=== PATIENT | female | born 1965 | race American Indian/Alaskan Native ===

== ENCOUNTER 2018-01-06 11:20 | Inpatient (IN) | payer OTHER ==
[2018-01-06 12:07] LABS: HEMOGLOBIN 13.2 g/dL (11.0-16.0); MEAN CELL VOLUME 82.9 fL (81.0-99.0); MEAN CORPUSCULAR HEMOGLOBIN 27.7 pg (27.0-31.0); MEAN CORPUSCULAR HGB CONC 33.4 g/dL (33.0-37.0); MEAN PLATELET VOLUME 8.6 fL (7.2-11.7); RBC 4.76 Mil/uL (3.80-5.20); RED CELL DISTRIBUTION WIDTH 14.6 % (11.5-14.5)
[2018-01-06 12:18] LABS: ALB/GLOB RATIO 1.2 (1.0-2.1); ALBUMIN 4.2 g/dL (3.5-5.0); ALT/SGPT 87 U/L (9-52); AST/SGOT 65 U/L (14-36); BLOOD UREA NITROGEN 9 mg/dL (7-17); CALCIUM 9.3 mg/dl (8.6-10.4); GFR NON-AFRICAN AMERICAN > 60
[2018-01-06 12:46] LABS: SQUAMOUS EPITHIAL 5 /hpf (0-5); URINE BACTERIA MANY (<OCC); URINE BILIRUBIN NEGATIVE (NEGATIVE); URINE BLOOD 1+ (NEGATIVE); URINE CLARITY Hazy (Clear); URINE COLOR Amber (YELLOW); URINE GLUCOSE (UA) NORMAL (Normal); URINE LEUKOCYTE ESTERASE 3+ Leu/uL (Negative); URINE PROTEIN 2+ mg/dL (NEGATIVE)
[2018-01-06 13:14] LABS: LIPASE 56 U/L (23-300)
[2018-01-06] MEDS ORDERED: cefTRIAXone 1 gm 1 GM/100 ML BAG IVPB ONE (13:16)
[2018-01-06] MEDS ORDERED: Sodium Chloride 0.9% 1,000 ML IV ONE (13:24)
--- NOTE | 2018-01-06 15:16 | C.PDOC ---
History Of Present Illness 52 year old female presents to the ED for evaluation of fever, chills, cough, nausea and generalized body aches for two days. Patient denies vomiting, diarrhea, abdominal pain, recent travel or sick contacts. Time Seen by Provider: 01/06/18 11:31 Chief Complaint (Nursing): Chest Pain History Per: Patient History/Exam Limitations: no limitations Onset/Duration Of Symptoms: Days (2) Current Symptoms Are (Timing): Still Present Quality: Aching Associated Symptoms: Nausea Additional History Per: Patient Past Medical History Reviewed: Historical Data, Nursing Documentation, Vital Signs Vital Signs: Last Vital Signs Temp 99 F 01/06/18 14:27 Pulse 82 01/06/18 14:27 Resp 17 01/06/18 14:27 BP 122/73 01/06/18 14:27 Pulse Ox 97 01/06/18 14:27 - Medical History PMH: No Chronic Diseases Surgical History: No Surg Hx Family History: States: Unknown Family Hx - Social History Hx Alcohol Use: No Hx Substance Use: No Review Of Systems Constitutional: Positive for: Fever, Chills Respiratory: Positive for: Cough Gastrointestinal: Positive for: Nausea. Negative for: Vomiting, Abdominal Pain, Diarrhea Musculoskeletal: Positive for: Other (generalized body aches ) Physical Exam - Physical Exam Appears: Non-toxic, No Acute Distress Skin: Normal Color, Warm, Dry Head: Atraumatic, Normacephalic Eye(s): bilateral: Normal Inspection Oral Mucosa: Moist Neck: Supple Chest: Symmetrical, No Deformity, No Tenderness Cardiovascular: Rhythm Regular, No Murmur Respiratory: Normal Breath Sounds, No Rales, No Rhonchi, No Wheezing Gastrointestinal/Abdominal: Soft, No Tenderness, No Guarding, No Rebound Extremity: Normal ROM, Capillary Refill Neurological/Psych: Oriented x3, Normal Speech, Normal Cognition ED Course And Treatment - Laboratory Results Result Diagrams: 01/06/18 11:47 01/06/18 11:47 ECG: Interpreted By Me, Viewed By Me ECG Rhythm: Sinus Tachycardia Interpretation Of ECG: Sinus Tachycardia at rate 105bpm. LVH. Normal intervals. Normal axis. Nonspecific ST/T wave changes. Rate From EC O2 Sat by Pulse Oximetry: 97 (on RA) Pulse Ox Interpretation: Normal Medical Decision Making Medical Decision Making: Assessment: pyelonephritis Progress: Case discussed with Dr. Cordero. Will keep patient for med surg observation. Disposition Discussed With : Vasyl Cordero Doctor Will See Patient In The: Hospital Counseled Patient/Family Regarding: Studies Performed, Diagnosis - Disposition Disposition: HOSPITALIZED Disposition Time: 15:16 Condition: FAIR - Clinical Impression Clinical Impression: Pyelonephritis - Scribe Statement The provider has reviewed the documentation as recorded by the Scribe (Sandrine Mojica) Provider Attestation: All medical record entries made by the Scribe were at my direction and personal ly dictated by me. I have reviewed the chart and agree that the record accurately reflects my personal performance of the history, physical exam, medical decision making, and the department course for this patient. I have also personally directed, reviewed, and agree with the discharge instructions and disposition.
--- NOTE | 2018-01-06 16:42 | RAD ---
Date of service: 01/06/2018 HISTORY: cough COMPARISON: No prior. TECHNIQUE: Chest PA and lateral FINDINGS: LUNGS: No acute infiltrate bilaterally. Linear atelectasis or fibrosis seen lateral to the left heart border. PLEURA: No significant pleural effusion identified. No pneumothorax apparent. CARDIOVASCULAR: No aortic atherosclerotic calcification present. Cardiomegaly identified. No pulmonary vascular congestion. OSSEOUS STRUCTURES: No significant abnormalities. VISUALIZED UPPER ABDOMEN: Normal. OTHER FINDINGS: None. IMPRESSION: Cardiomegaly. No pulmonary vascular congestion or acute pulmonary infiltrate appreciable bilaterally. Linear atelectasis or fibrosis seen lateral to the left heart border
[2018-01-06] MEDS ORDERED: Potassium Chloride 20 mEq ER Tab PO ONE (19:18)
[2018-01-07 07:42] LABS: BASO # 0.1 K/uL (0.0-0.2); BASO % 0.6 % (0.0-2.0); EOS % 0.1 % (0.0-4.0); HEMOGLOBIN 12.2 g/dL (11.0-16.0); LYMPH # 0.9 K/uL (1.0-4.3); LYMPH % 7.6 % (20.0-40.0); MEAN CELL VOLUME 83.3 fL (81.0-99.0); MEAN CORPUSCULAR HEMOGLOBIN 27.7 pg (27.0-31.0); MEAN CORPUSCULAR HGB CONC 33.2 g/dL (33.0-37.0); MEAN PLATELET VOLUME 8.6 fL (7.2-11.7); MONO # 0.4 K/uL (0.0-0.8); MONO % 3.7 % (0.0-10.0); NEUT # 10.4 K/uL (1.8-7.0); PLATELET COUNT 211 K/uL (130-400); RED CELL DISTRIBUTION WIDTH 14.4 % (11.5-14.5); WHITE BLOOD COUNT 11.8 K/uL (4.8-10.8)
[2018-01-07 08:26] LABS: ALBUMIN 3.7 g/dL (3.5-5.0); ALT/SGPT 72 U/L (9-52); AST/SGOT 54 U/L (14-36); BLOOD UREA NITROGEN 13 mg/dL (7-17); GFR NON-AFRICAN AMERICAN > 60
[2018-01-07 09:19] LABS: BANDS 3 % (0-2); LYMPHOCYTE 11 % (20-40); MONOCYTE 2 % (0-10); NEUTROPHIL 84 % (50-75); PLATELET ESTIMATE NORMAL (NORMAL); TOTAL CELLS COUNTED 100
--- NOTE | 2018-01-07 09:42 | CP.PCM.PN ---
Subjective - Date & Time of Evaluation Date of Evaluation: 01/07/18 Time of Evaluation: 09:40 - Subjective Subjective: Progress note. Attending: Dr. Barrera Pt is a 52 yo female, with past medical hx of obesity, cholelithiasis, unspecified cyst on right arm, presenting to [facility] ER with chief complaint of abdominal pain and back pain. Patient states pain began on 01/05. Pt says this has never happened before. She was feeling subjective fevers at home but did not take her temp. She denies any ongoing medical problems and does not smoke. She denies any urinary complaints, vomiting, diarrhea, black or bloody stools. She denies chest pain, shortness of breath. She is also reporting a headache. Denies recent travel or sick contacts. PMH: obesity, cholelithiasis, unspecified cyst on right arm PSH: cholecystectomy; cyst removal; C section x 2 Allergies: NKDA FH: denies Home meds: multivitamin Social hx: Denies smoking, drinking, drug use hx. Born in . Lives with one daughter at home. Works as a engineering technician. Grew up in [place]. PMD: Dr. Barrera. Objective - Vital Signs/Intake and Output Vital Signs (last 24 hours): Temp Pulse Resp BP Pulse Ox 100.6 F H 102 H 20 131/83 97 01/07/18 08:03 01/07/18 08:03 01/07/18 08:03 01/07/18 08:03 01/07/18 08:20 - Medications Medications: Current Medications Acetaminophen (Tylenol 325mg Tab) 650 mg PO Q6 PRN PRN Reason: Fever >100.4 F Last Admin: 01/07/18 07:43 Dose: 650 mg Heparin Sodium (Porcine) (Heparin) 5,000 units SC Q12 TEX Ceftriaxone Sodium 1 gm/ (Sodium Chloride) 100 mls @ 100 mls/hr IVPB DAILY TEX; Protocol Ketorolac Tromethamine (Toradol) 30 mg IVP Q8 PRN PRN Reason: Pain, moderate (4-7) Last Admin: 01/07/18 07:36 Dose: 30 mg Potassium Chloride (K-Dur 20 Meq Er Tab) 20 meq PO ONCE ONE Stop: 01/07/18 10:01 - Labs Labs: 01/07/18 07:29 01/07/18 07:29 - Constitutional Appears: Non-toxic, No Acute Distress - Head Exam Head Exam: ATRAUMATIC, NORMAL INSPECTION, NORMOCEPHALIC - Eye Exam Eye Exam: EOMI - ENT Exam ENT Exam: Mucous Membranes Moist - Neck Exam Neck Exam: Full ROM, Normal Inspection - Respiratory Exam Respiratory Exam: absent: Respiratory Distress - Cardiovascular Exam Cardiovascular Exam: +S1, +S2 - GI/Abdominal Exam GI & Abdominal Exam: Soft, Normal Bowel Sounds. absent: Tenderness - Extremities Exam Extremities Exam: Full ROM, Normal Inspection - Back Exam Back Exam: CVA tenderness (R) - Neurological Exam Neurological Exam: Alert, Awake, CN II-XII Intact, Oriented x3 - Psychiatric Exam Psychiatric exam: Flat Affect - Skin Skin Exam: Dry, Intact, Normal Color, Warm Assessment and Plan - Assessment and Plan (Free Text) Assessment: This is a 52 yo female 1. Pyelonephritis -tylenol PRN -ceftriaxone 1 g daily -toradol prn -renal ultrasound is normal -flu negative -urine culture pending 2. hypokalemia -repelete as needed 3. transaminitis -hep panel -GGT 4. elevated alk phos -hep panel -GGT 5. Cardiomegaly on CXR -cardiology consult. recs appreciated. Dr. Estrada 6. IGT -lifestyle and diet changes -may be a candidate for metformin for prevention given age and BMI 7. Obesity -recommend weight loss/healthy diet 8. GI/DVT ppx -heparin 5000 q 12 hrs -no GI indicated discussed with Dr. Barrera
--- NOTE | 2018-01-07 09:59 | US ---
Date of service: 01/07/2018 PROCEDURE: Ultrasound of the Kidneys HISTORY: Pyelonephritis COMPARISON: None available. TECHNIQUE: Sonogram of the kidneys. FINDINGS: RIGHT KIDNEY: Measures: 11.2 cm. Normal in size, contour and echogenicity. No stone, solid mass lesion or hydronephrosis visualized. LEFT KIDNEY: Measures: 10.8 cm. Normal in size, contour and echogenicity. No stone, solid mass lesion or hydronephrosis visualized. OTHER FINDINGS: None. IMPRESSION: Normal examination.
[2018-01-07] MEDS ORDERED: Potassium Chloride 20 mEq ER Tab PO ONE ×2 (10:00→19:02)
[2018-01-07 11:49] LABS: HDL CHOLESTEROL 53 mg/dL (30-70)
[2018-01-07 12:02] LABS: LDL CHOLESTEROL 69 mg/dL (0-129)
[2018-01-07 17:22] LABS: HEPATITIS B SURFACE AG Negative (NEGATIVE)
[2018-01-07 17:28] LABS: HEPATITIS A IGM NEGATIVE (NEGATIVE)
[2018-01-07 17:40] LABS: HEPATITIS C ANTIBODY NEGATIVE (NEGATIVE)
[2018-01-07 18:42] LABS: HEPATITIS B CORE AB NEGATIVE (NEGATIVE)
--- NOTE | 2018-01-07 18:55 | CP.PCM.CON ---
History of Present Illness - History of Present Illness History of Present Illness: I was asked to evaluate patient by Dr Barrera. Patient was seen 01/07/18 at 1810 Patient is a 52 year old female with HTN who presents with flank pain. Patient states symptoms 3 days ago, and was noted to feel feverish. The patient was noted to have dyspnea on exertion. She was admitted for further management. Of note cardiomegaly was noted on CXR. She denies previous cardiac workup. Review of Systems - Constitutional Constitutional: Fever - EENT Eyes: absent: As Per HPI, Blind Spots, Blurred Vision, Change in Vision, Decreased Night Vision, Diplopia, Discharge, Dry Eye, Exophthalmos, Floaters, Irritation, Itchy Eyes, Loss of Peripheral Vision, Pain, Photophobia, Requires Corrective Lenses, Sees Flashes, Spots in Vision, Tunnel Vision, Other Visual Disturbances, Loss of Vision, Other Ears: absent: As Per HPI, Decreased Hearing, Ear Discharge, Ear Pain, Tinnitus, Abnormal Hearing, Disequilibrium, Dizziness, Other Nose/Mouth/Throat: absent: As Per HPI, Epistaxis, Nasal Congestion, Nasal Discharge, Nasal Obstruction, Nasal Trauma, Nose Pain, Post Nasal Drip, Sinus Pain, Sinus Pressure, Bleeding Gums, Change in Voice, Dental Pain, Dry Mouth, Dysphagia, Halitosis, Hoarsness, Lip Swelling, Mouth Lesions, Mouth Pain, Odynophagia, Sore Throat, Throat Swelling, Tongue Swelling, Facial Pain, Neck Pain, Neck Mass, Other - Breasts Breasts: absent: As Per HPI, Change in Shape, Mass, Pain, Nipple Discharge, Nipple Inversion, Skin Changes, Swelling, Other - Cardiovascular Cardiovascular: Dyspnea. absent: As Per HPI, Acrocyanosis, Chest Pain, Chest Pain at Rest, Chest Pain with Activity, Claudication, Diaphoresis, Dyspnea on Exertion, Edema, Irregular Heart Rhythm, Pain Radiating to Arm/Neck/Jaw, Leg Edema, Leg Ulcers, Lightheadedness, Orthopnea, Palpitations, Paroxysmal Nocturn al Dyspnea, Pedal Edema, Radiating Pain, Rapid Heart Rate, Slow Heart Rate, Syncope, Other - Respiratory Respiratory: Dyspnea. absent: As Per HPI, Cough, Hemoptysis, Dyspnea on Exertion, Wheezing, Snoring, Stridor, Pain on Inspiration, Chest Congestion, Excessive Mucous Production, Change in Mucous Color, Pain with Coughing, Other - Gastrointestinal Gastrointestinal: absent: As Per HPI, Abdominal Pain, Belching, Bloating, Change in Bowel Habits, Change in Stool Character, Coffee Ground Emesis, Constipation, Cramping, Diarrhea, Dyspepsia, Dysphagia, Early Satiety, Excessive Flatus, Fecal Incontinence, Heartburn, Hematemesis, Hematochezia, Loose Stools, Melena, Nausea, Odynophagia, Temesmus, Vomiting, Other - Genitourinary Genitourinary: Flank Pain - Musculoskeletal Musculoskeletal: absent: As Per HPI, Abnormal Gait, Arthralgias, Atrophy, Back Pain, Deformity, Joint Swelling, Limited Range of Motion, Loss of Height, Muscle Cramps, Muscle Weakness, Myalgias, Neck Pain, Numbness, Radiating Pain into Limb, Stiffness, Tingling, Other - Integumentary Integumentary: absent: As Per HPI, Acne, Alopecia, Bleeding Lesions, Change in Hair, Change in Nails, Change in Pigmentation, Changing Lesions, Dry Skin, Erythema, Furuncle, Hirsutism, Lesions, New Lesions, Non-Healing Lesions, Photosensitivity, Pruritus, Rash, Skin Pain, Skin Ulcer, Sores, Striae, Swelling, Unusual Bruising, Wounds, Jaundice, Other - Neurological Neurological: absent: As Per HPI, Abnormal Gait, Abnormal Hearing, Abnormal Movements, Abnormal Speech, Behavioral Changes, Burning Sensations, Confusion, Convulsions, Disequilibrium, Dizziness, Numbness, Focal Weakness, Frequent Falls, Headaches, Lack of Coordination, Loss of Vision, Memory Loss, Paresthesias, Radicular Pain, Restless Legs, Sensory Deficit, Syncope, Tingling, Tremor, Vertigo, Weakness, Other Visual Disturbances, Other - Psychiatric Psychiatric: absent: As Per HPI, Abnormal Sleep Pattern, Anhedonia, Anxiety, Auditory Hallucinations, Behavioral Changes, Change in Appetite, Change in Libido, Confusion, Depression, Difficulty Concentrating, Hallucinations, Homicidal Ideation, Hopelessness, Irritability, Memory Loss, Mood Swings, Panic Attacks, Paranoia, Suicidal Ideation, Visual Hallucinations, Tactile Hallucinations, Other - Endocrine Endocrine: absent: As Per HPI, Change in Body Appearance, Change in Libido, Cold Intolorance, Deepening of Voice, Excessive Sweating, Fatigue, Flushing, Heat Intolorance, Increase in Ring/Shoe/Hat Size, Palpitations, Polydipsia, Polyphagia, Polyuria, Other - Hematologic/Lymphatic Hematologic: absent: As Per HPI, Easy Bleeding, Easy Bruising, Lymphadenopathy, Other Past Patient History - Past Social History Smoking Status: Never Smoked - PSYCHIATRIC Hx Substance Use: No - ANESTHESIA Hx Anesthesia: No Meds Allergies/Adverse Reactions: Allergies Allergy/AdvReac Type Severity Reaction Status Date / Time No Known Allergies Allergy Unverified 01/06/18 11:21 - Medications Medications: Current Medications Acetaminophen (Tylenol 325mg Tab) 650 mg PO Q6 PRN PRN Reason: Fever >100.4 F Last Admin: 01/07/18 07:43 Dose: 650 mg Heparin Sodium (Porcine) (Heparin) 5,000 units SC Q12 TEX Last Admin: 01/07/18 09:36 Dose: 5,000 units Ceftriaxone Sodium 1 gm/ (Sodium Chloride) 100 mls @ 100 mls/hr IVPB DAILY [facility]; Protocol Last Admin: 01/07/18 09:36 Dose: 100 mls/hr Influenza Virus Vaccine (Fluzone Quad [id number]) 60 mcg IM .ONCE ONE Stop: 01/09/18 10:01 Ketorolac Tromethamine (Toradol) 30 mg IVP Q8 PRN PRN Reason: Pain, moderate (4-7) Last Admin: 01/07/18 16:50 Dose: 30 mg Pneumococcal Polyvalent Vaccine (Pneumovax 23 Vaccine) 0.5 ml IM .ONCE ONE Stop: 01/09/18 10:01 Physical Exam - Constitutional Appears: Non-toxic - Head Exam Head Exam: NORMAL INSPECTION - Eye Exam Eye Exam: Normal appearance - ENT Exam ENT Exam: Mucous Membranes Moist - Neck Exam Neck exam: Positive for: Full Rom, Normal Inspection. Negative for: Lymphadenopathy - Respiratory Exam Respiratory Exam: Decreased Breath Sounds, NORMAL BREATHING PATTERN - Cardiovascular Exam Cardiovascular Exam: REGULAR RHYTHM - GI/Abdominal Exam GI & Abdominal Exam: Normal Bowel Sounds - Rectal Exam Rectal Exam: Deferred - Extremities Exam Extremities exam: Positive for: normal inspection, pedal pulses present. Negative for: pedal edema - Back Exam Back exam: NORMAL INSPECTION - Neurological Exam Neurological exam: Alert, Oriented x3 - Psychiatric Exam Psychiatric exam: Normal Affect - Skin Skin Exam: Normal Color Results - Vital Signs Recent Vital Signs: Last Vital Signs Temp 98.7 F 01/07/18 16:00 Pulse 88 01/07/18 16:00 Resp 20 01/07/18 16:00 BP 133/82 01/07/18 16:00 Pulse Ox 98 01/07/18 16:00 - Labs Result Diagrams: 01/07/18 07:29 01/07/18 07:29 Labs: Laboratory Results - last 24 hr 01/07/18 01/07/18 01/07/18 07:29 07:29 11:37 WBC 11.8 H RBC 4.40 Hgb 12.2 Hct 36.7 MCV 83.3 MCH 27.7 MCHC 33.2 RDW 14.4 Plt Count 211 MPV 8.6 Neut % (Auto) 88.0 H Lymph % (Auto) 7.6 L R[place] % (Auto) 3.7 Eos % (Auto) 0.1 Baso % (Auto) 0.6 Neut # (Auto) 10.4 H Lymph # (Auto) 0.9 L [place] # (Auto) 0.4 Eos # (Auto) 0.0 Baso # (Auto) 0.1 Neutrophils % (Manual) 84 H Band Neutrophils % 3 H Lymphocytes % (Manual) 11 L Monocytes % (Manual) 2 Platelet Estimate Normal Sodium 139 Potassium 3.8 Chloride 108 H Carbon Dioxide 22 Anion Gap 12 BUN 13 Creatinine 0.9 Est GFR ( Amer) > 60 Est GFR (Non-Af Amer) > 60 Random Glucose 97 Hemoglobin A1c 5.8 Calcium 9.0 Total Bilirubin 0.8 GGT AST 54 H ALT 72 H Alkaline Phosphatase 133 H Total Protein 7.4 Albumin 3.7 Globulin 3.6 Albumin/Globulin Ratio 1.0 Triglycerides 147 Cholesterol 209 H LDL Cholesterol Direct 69 HDL Cholesterol 53 TSH 3rd Generation 0.13 L Hepatitis A IgM Ab Hep Bs Antigen Hep B Core IgM Ab Hepatitis C Antibody 01/07/18 01/07/18 16:41 16:41 WBC RBC Hgb Hct MCV MCH MCHC RDW Plt Count MPV Neut % (Auto) Lymph % (Auto) Rincon % (Auto) Eos % (Auto) Baso % (Auto) Neut # (Auto) Lymph # (Auto) Rincon # (Auto) Eos # (Auto) Baso # (Auto) Neutrophils % (Manual) Band Neutrophils % Lymphocytes % (Manual) Monocytes % (Manual) Platelet Estimate Sodium Potassium Chloride Carbon Dioxide Anion Gap BUN Creatinine Est GFR ( Amer) Est GFR (Non-Af Amer) Random Glucose Hemoglobin A1c Calcium Total Bilirubin GGT 227 H AST ALT Alkaline Phosphatase Total Protein Albumin Globulin Albumin/Globulin Ratio Triglycerides Cholesterol LDL Cholesterol Direct HDL Cholesterol TSH 3rd Generation Hepatitis A IgM Ab Negative Hep Bs Antigen Negative Hep B Core IgM Ab Negative Hepatitis C Antibody Negative - EKG Data EKG Interpreted by: Myself EKG shows normal: Sinus rhythm - EKG Data EKG Specific Queries Voltage: Increased Voltage, C/W LVH Assessment & Plan (1) Dyspnea Assessment and Plan: Patient will benefit from evaluation of ventricular and diastolic function given symptoms. recommend echocardiogram Status: Acute (2) Left ventricular hypertrophy Assessment and Plan: seen on EKG, ventricular wall thickness will need to be evaluated. recommend echocardiogram Status: Acute
--- NOTE | 2018-01-07 21:45 | CARD ---
APPROVED REPORT Date of service: 01/06/2018 EKG Measurement Heart [id number] <Conclusion> Sinus tachycardia Moderate voltage criteria for LVH, may be normal variant Nonspecific ST and T wave abnormality Abnormal ECG
[2018-01-08 07:29] LABS: BASO % 0.3 % (0.0-2.0); EOS % 0.2 % (0.0-4.0); HEMOGLOBIN 11.8 g/dL (11.0-16.0); LYMPH # 1.2 K/uL (1.0-4.3); LYMPH % 15.6 % (20.0-40.0); MEAN CELL VOLUME 82.6 fL (81.0-99.0); MEAN CORPUSCULAR HEMOGLOBIN 27.6 pg (27.0-31.0); MEAN CORPUSCULAR HGB CONC 33.4 g/dL (33.0-37.0); MONO # 0.6 K/uL (0.0-0.8); MONO % 7.9 % (0.0-10.0); NEUT # 5.9 K/uL (1.8-7.0); RBC 4.28 Mil/uL (3.80-5.20); RED CELL DISTRIBUTION WIDTH 14.5 % (11.5-14.5); WHITE BLOOD COUNT 7.8 K/uL (4.8-10.8)
[2018-01-08 08:08] LABS: ALBUMIN 3.6 g/dL (3.5-5.0); ALT/SGPT 70 U/L (9-52); AST/SGOT 68 U/L (14-36); BLOOD UREA NITROGEN 13 mg/dL (7-17); CALCIUM 8.6 mg/dl (8.6-10.4); GFR NON-AFRICAN AMERICAN > 60
[2018-01-08] MEDS ORDERED: Potassium Chloride 20 mEq ER Tab PO ONE (09:02)
--- NOTE | 2018-01-08 10:04 | HP ---
HISTORY OF PRESENT ILLNESS: The patient is a 52 year-old female, chief complaint fever, right flank pain, dysuria. Patient , admission to hospital. Patient says this has never happened before. PHYSICAL EXAMINATION: GENERAL: The patient is awake, alert, and oriented. VITAL SIGNS: Temperature 100, pulse 90. HEENT: Within normal limits. NECK: Supple. CHEST: Symmetrical. BACK: Flank tenderness. EXTREMITIES: No edema. The patient suffers from acute pyelonephritis. Patient get bed rest, supportive care, IV antibiotics. Vasyl Barrera MD
--- NOTE | 2018-01-08 12:50 | CP.PCM.PN ---
Subjective - Date & Time of Evaluation Date of Evaluation: 01/08/18 Time of Evaluation: 12:25 - Subjective Subjective: patient has no chest pain. cough is improving. Objective - Vital Signs/Intake and Output Vital Signs (last 24 hours): Temp Pulse Resp BP Pulse Ox 99.0 F 74 20 149/89 97 01/08/18 08:38 01/08/18 08:38 01/08/18 08:38 01/08/18 08:38 01/08/18 08:38 Intake and Output: 01/08/18 01/08/18 06:59 18:59 Intake Total 400 Balance 400 - Medications Medications: Current Medications Acetaminophen (Tylenol 325mg Tab) 650 mg PO Q6 PRN PRN Reason: Fever >100.4 F Last Admin: 01/08/18 04:30 Dose: 650 mg Heparin Sodium (Porcine) (Heparin) 5,000 units SC Q12 TEX Last Admin: 01/08/18 09:56 Dose: 5,000 units Ceftriaxone Sodium 1 gm/ (Sodium Chloride) 100 mls @ 100 mls/hr IVPB DAILY [facility]; Protocol Last Admin: 01/08/18 09:56 Dose: 100 mls/hr Influenza Virus Vaccine (Fluzone Quad 4881-5502) 60 mcg IM .ONCE ONE Stop: 01/09/18 10:01 Ketorolac Tromethamine (Toradol) 30 mg IVP Q8 PRN PRN Reason: Pain, moderate (4-7) Last Admin: 01/07/18 16:50 Dose: 30 mg Pneumococcal Polyvalent Vaccine (Pneumovax 23 Vaccine) 0.5 ml IM .ONCE ONE Stop: 01/09/18 10:01 - Labs Labs: 01/08/18 07:10 01/08/18 07:10 - Constitutional Appears: Non-toxic - Head Exam Head Exam: NORMAL INSPECTION - Eye Exam Eye Exam: Normal appearance - ENT Exam ENT Exam: Mucous Membranes Moist - Neck Exam Neck Exam: Full ROM - Respiratory Exam Respiratory Exam: NORMAL BREATHING PATTERN - Cardiovascular Exam Cardiovascular Exam: REGULAR RHYTHM - GI/Abdominal Exam GI & Abdominal Exam: Normal Bowel Sounds - Rectal Exam Rectal Exam: Deferred - Extremities Exam Extremities Exam: Normal Inspection - Back Exam Back Exam: NORMAL INSPECTION - Neurological Exam Neurological Exam: Alert - Psychiatric Exam Psychiatric exam: Normal Affect - Skin Skin Exam: Normal Color Assessment and Plan (1) Dyspnea Assessment & Plan: multifactorial. await echo to assess left ventricular function Status: Acute (2) Left ventricular hypertrophy Assessment & Plan: will assess LV thickness with echocardiogram Status: Acute
--- NOTE | 2018-01-08 15:35 | CP.PCM.PN ---
Subjective - Date & Time of Evaluation Date of Evaluation: 01/08/18 Time of Evaluation: 15:30 - Subjective Subjective: Progress note. Attending: Dr. Barrera. Pt seen and examined at bedside. No acute distress. No events overnight. Cardiology eval in progress. Objective - Vital Signs/Intake and Output Vital Signs (last 24 hours): Temp Pulse Resp BP Pulse Ox 99.0 F 74 20 149/89 99 01/08/18 08:38 01/08/18 08:38 01/08/18 08:38 01/08/18 08:38 01/08/18 13:45 Intake and Output: 01/08/18 01/08/18 06:59 18:59 Intake Total 900 Balance 900 - Medications Medications: Current Medications Acetaminophen (Tylenol 325mg Tab) 650 mg PO Q6 PRN PRN Reason: Fever >100.4 F Last Admin: 01/08/18 04:30 Dose: 650 mg Heparin Sodium (Porcine) (Heparin) 5,000 units SC Q12 TEX Last Admin: 01/08/18 09:56 Dose: 5,000 units Ceftriaxone Sodium 1 gm/ (Sodium Chloride) 100 mls @ 100 mls/hr IVPB DAILY [facility]; Protocol Last Admin: 01/08/18 09:56 Dose: 100 mls/hr Influenza Virus Vaccine (Fluzone Quad [id number]) 60 mcg IM .ONCE ONE Stop: 01/09/18 10:01 Ketorolac Tromethamine (Toradol) 30 mg IVP Q8 PRN PRN Reason: Pain, moderate (4-7) Last Admin: 01/08/18 13:59 Dose: 30 mg Pneumococcal Polyvalent Vaccine (Pneumovax 23 Vaccine) 0.5 ml IM .ONCE ONE Stop: 01/09/18 10:01 - Labs Labs: 01/08/18 07:10 01/08/18 07:10 - Constitutional Appears: Non-toxic, No Acute Distress - Head Exam Head Exam: ATRAUMATIC, NORMAL INSPECTION, NORMOCEPHALIC - Eye Exam Eye Exam: EOMI - ENT Exam ENT Exam: Mucous Membranes Moist - Neck Exam Neck Exam: Full ROM, Normal Inspection. absent: Lymphadenopathy - Respiratory Exam Respiratory Exam: NORMAL BREATHING PATTERN. absent: Respiratory Distress - Cardiovascular Exam Cardiovascular Exam: +S1, +S2 - GI/Abdominal Exam GI & Abdominal Exam: Soft, Normal Bowel Sounds. absent: Tenderness - Extremities Exam Extremities Exam: Full ROM, Normal Inspection - Back Exam Back Exam: NORMAL INSPECTION - Neurological Exam Neurological Exam: Alert, Awake, Oriented x3 - Psychiatric Exam Psychiatric exam: Normal Affect, Normal Mood - Skin Skin Exam: Dry, Intact, Normal Color, Warm Assessment and Plan - Assessment and Plan (Free Text) Assessment: This is a 52 yo female 1. Pyelonephritis -tylenol PRN -ceftriaxone 1 g daily -toradol prn -renal ultrasound is normal -flu negative -urine culture pending >>> shows E. Coli 2. hypokalemia -repelete as needed 3. transaminitis -hep panel negative -GGT elevated -trending down -continue to monitor 4. elevated alk phos -hep panel negative -GGT elevated -trending down 5. Cardiomegaly on CXR -cardiology consult. recs appreciated. Dr. Estrada -getting echo 6. IGT -lifestyle and diet changes -may be a candidate for metformin for prevention given age and BMI 7. Obesity -recommend weight loss/healthy diet 8. GI/DVT ppx -heparin 5000 q 12 hrs -no GI indicated discussed with Dr. Barrera
[2018-01-09 07:04] LABS: BASO # 0.1 K/uL (0.0-0.2); BASO % 1.1 % (0.0-2.0); EOS # 0.1 K/uL (0.0-0.7); EOS % 0.7 % (0.0-4.0); LYMPH # 1.7 K/uL (1.0-4.3); LYMPH % 19.3 % (20.0-40.0); MEAN CELL VOLUME 82.9 fL (81.0-99.0); MEAN CORPUSCULAR HEMOGLOBIN 27.8 pg (27.0-31.0); MEAN CORPUSCULAR HGB CONC 33.5 g/dL (33.0-37.0); MEAN PLATELET VOLUME 8.7 fL (7.2-11.7); MONO # 0.9 K/uL (0.0-0.8); NEUT # 5.9 K/uL (1.8-7.0); NEUT % 68.9 % (50.0-75.0); RBC 4.33 Mil/uL (3.80-5.20); RED CELL DISTRIBUTION WIDTH 14.5 % (11.5-14.5); WHITE BLOOD COUNT 8.6 K/uL (4.8-10.8)
[2018-01-09 07:36] LABS: ALBUMIN 3.7 g/dL (3.5-5.0); ALT/SGPT 79 U/L (9-52); AST/SGOT 68 U/L (14-36); BLOOD UREA NITROGEN 12 mg/dL (7-17); GFR NON-AFRICAN AMERICAN > 60
[2018-01-09] MEDS: Pneumococcal 23-Valent Vaccine IM ONE ×2 (09:54→12:14)
[2018-01-09] MEDS: Influenza Vaccine 60 MCG/0.5 ML SYR (3 yr & up) IM ONE ×2 (09:55→12:14)
--- NOTE | 2018-01-09 13:08 | CP.PCM.PN ---
Subjective - Date & Time of Evaluation Date of Evaluation: 01/09/18 Time of Evaluation: 13:00 - Subjective Subjective: echocardiogram reviewed by me. Normal left ventricular function. mild left ventricular hypertrophy. no further cardiac testing necessary as inpatient. Objective - Vital Signs/Intake and Output Vital Signs (last 24 hours): Temp Pulse Resp BP Pulse Ox 98.3 F 85 18 150/85 99 01/09/18 08:23 01/09/18 10:25 01/09/18 10:25 01/09/18 10:25 01/09/18 10:25 Intake and Output: 01/09/18 01/09/18 06:59 18:59 Intake Total 400 300 Balance 400 300 - Medications Medications: Current Medications Acetaminophen (Tylenol 325mg Tab) 650 mg PO Q6 PRN PRN Reason: Fever >100.4 F Last Admin: 01/09/18 04:15 Dose: 650 mg Heparin Sodium (Porcine) (Heparin) 5,000 units SC Q12 TEX Last Admin: 01/09/18 09:57 Dose: 5,000 units Ceftriaxone Sodium 1 gm/ (Sodium Chloride) 100 mls @ 100 mls/hr IVPB DAILY [facility]; Protocol Last Admin: 01/09/18 09:58 Dose: 100 mls/hr - Labs Labs: 01/09/18 06:57 01/09/18 06:57 Assessment and Plan (1) Dyspnea Status: Acute (2) Left ventricular hypertrophy Status: Acute
--- NOTE | 2018-01-09 13:59 | US ---
HISTORY: transaminitis COMPARISON: Renal ultrasound performed 01/07/18 TECHNIQUE: Sonographic evaluation of the abdomen. FINDINGS: LIVER: Measures 19.1 cm in sagittal dimension. Echogenic liver may be seen in setting of hepatic parenchymal disease or fatty infiltration. No focal hepatic mass identified. The main portal vein appears patent with normal directional flow. No intrahepatic bile duct dilatation. GALLBLADDER: Cholecystectomy. COMMON BILE DUCT: Measures 4 mm. PANCREAS: Not well visualized. RIGHT KIDNEY: Measures 11.1 x 4.2 x 5.3 cm. No obstructing calculus or hydronephrosis identified. LEFT KIDNEY: Measures 11.2 x 6.1 x 5.5 cm. No obstructing calculus or hydronephrosis identified. SPLEEN: Measures approximately 8.6 cm. AORTA: Limited views appear unremarkable. No atherosclerotic calcification or mural plaque identified. IVC: Limited views appear unremarkable. OTHER FINDINGS: None. IMPRESSION: Echogenic liver may be seen in setting of hepatic parenchymal disease or fatty infiltration.
--- NOTE | 2018-01-09 14:16 | CP.PCM.PN ---
Subjective - Date & Time of Evaluation Date of Evaluation: 01/09/18 Time of Evaluation: 14:10 - Subjective Subjective: Progress note Attending: Dr. Barrera. Pt seen and examined at bedside. No acute distress. No events overnight. No fevers, chills, vomiting, diarrhea. Objective - Vital Signs/Intake and Output Vital Signs (last 24 hours): Temp Pulse Resp BP Pulse Ox 98.3 F 85 18 150/85 99 01/09/18 08:23 01/09/18 10:25 01/09/18 10:25 01/09/18 10:25 01/09/18 10:25 Intake and Output: 01/09/18 01/09/18 06:59 18:59 Intake Total 400 300 Balance 400 300 - Medications Medications: Current Medications Acetaminophen (Tylenol 325mg Tab) 650 mg PO Q6 PRN PRN Reason: Fever >100.4 F Last Admin: 01/09/18 04:15 Dose: 650 mg Heparin Sodium (Porcine) (Heparin) 5,000 units SC Q12 TEX Last Admin: 01/09/18 09:57 Dose: 5,000 units Ceftriaxone Sodium 1 gm/ (Sodium Chloride) 100 mls @ 100 mls/hr IVPB DAILY TEX; Protocol Last Admin: 01/09/18 09:58 Dose: 100 mls/hr - Labs Labs: 01/09/18 06:57 01/09/18 06:57 - Constitutional Appears: Non-toxic, No Acute Distress - Head Exam Head Exam: ATRAUMATIC, NORMAL INSPECTION, NORMOCEPHALIC - Eye Exam Eye Exam: EOMI - ENT Exam ENT Exam: Mucous Membranes Moist - Neck Exam Neck Exam: Full ROM, Normal Inspection - Respiratory Exam Respiratory Exam: NORMAL BREATHING PATTERN. absent: Respiratory Distress - Cardiovascular Exam Cardiovascular Exam: +S1, +S2 - GI/Abdominal Exam GI & Abdominal Exam: Soft, Normal Bowel Sounds. absent: Tenderness - Extremities Exam Extremities Exam: Full ROM, Normal Inspection - Back Exam Back Exam: NORMAL INSPECTION - Neurological Exam Neurological Exam: Alert, Awake, Oriented x3 - Psychiatric Exam Psychiatric exam: Normal Affect, Normal Mood - Skin Skin Exam: Dry, Intact, Normal Color, Warm Assessment and Plan - Assessment and Plan (Free Text) Assessment: This is a 52 yo female 1. Pyelonephritis -tylenol PRN -ceftriaxone 1 g daily -toradol prn -renal ultrasound is normal -flu negative -urine culture pending >>> shows E. Coli -discharging on cipro 2. hypokalemia -repelete as needed 3. transaminitis -hep panel negative -GGT elevated -trending down -continue to monitor -abdominal ultrasound shows fatty infiltration vs. hepatic parenchymal disease -needs outpatient gi workup 4. elevated alk phos -hep panel negative -GGT elevated -trending down 5. Cardiomegaly on CXR -cardiology consult. recs appreciated. Dr. Estrada -getting echo 6. IGT -lifestyle and diet changes -may be a candidate for metformin for prevention given age and BMI 7. Obesity -recommend weight loss/healthy diet 8. GI/DVT ppx -heparin 5000 q 12 hrs -no GI indicated discussed with Dr. Barrera
[2018-01-09 17:08] VITALS: RESP 20
--- NOTE | 2018-01-09 17:43 | CT ---
Date of service: 01/09/2018 PROCEDURE: CT HEAD WITHOUT CONTRAST. HISTORY: Headache. COMPARISON: No prior study available for comparison. TECHNIQUE: Axial computed tomography images were obtained through the head/brain without intravenous contrast. Radiation dose: Total exam DLP = 1296.97 mGy-cm. This CT exam was performed using one or more of the following dose reduction techniques: Automated exposure control, adjustment of the mA and/or kV according to patient size, and/or use of iterative reconstruction technique. FINDINGS: HEMORRHAGE: No acute parenchymal, subarachnoid or extra-axial hemorrhage. BRAIN: There are no no evidence of large acute infarct. No obvious parenchymal nor extra-axial mass or collection seen on this noncontrast study. VENTRICLES: No obstructive hydrocephalus. CALVARIUM: There are no acute calvarial fractures. PARANASAL SINUSES: Unremarkable as visualized. No significant inflammatory changes. MASTOID AIR CELLS: Unremarkable as visualized. No inflammatory changes. OTHER FINDINGS: None. IMPRESSION: No acute intracranial hemorrhage.
--- NOTE | 2018-01-09 18:48 | CARD ---
APPROVED REPORT Date of service: 01/09/2018 EXAM: Two-dimensional and M-mode echocardiogram with Doppler and color Doppler. Other Information Quality : GoodRhythm : INDICATION Dyspnea 2D DIMENSIONS IVSd1.1 (0.7-1.1cm)Aortic Root (2D)3.5 (2.0-3.7cm) LVDd4.9 (3.9-5.9cm)PWd1.0 (0.7-1.1cm) LA Xetvsr31 (18-58mL)LVDs3.2 (2.5-4.0cm) FS (%) 35.2 %LVEF (%)64.3 (>50%) LVEF (Castro's)64 %IVC0.00 cm M-Mode DIMENSIONS Left Atrium (MM)3.91 (2.5-4.0cm)IVSd0.63 (0.7-1.1cm) Aortic Root3.36 (2.2-3.7cm)LVDd5.64 (4.0-5.6cm) Aortic Cusp Exc.1.81 (1.5-2.0cm)PWd0.74 (0.7-1.1cm) FS (%) 37 %LVDs3.54 (2.0-3.8cm) LVEF (%)67 (>50%) Mitral Valve MV E Ynaqbqny26.3cm/sMV A Amktphqt02.5cm/sE/A ratio0.9 TDI Lateral E' Peak V7.64cm/sMedial E' Peak V7.00cm/sE/Lateral E'10.4 E/Medial E'11.3 Tricuspid Valve TR Peak [id number]/sTR Peak [id number] LEFT VENTRICLE The left ventricle is normal size. There is normal left ventricular wall thickness. Left ventricle systolic function is normal. The Ejection Fraction is 65-70%. There is normal LV segmental wall motion. The left ventricular diastolic function is normal. No left ventricle thrombus noted on this study. RIGHT VENTRICLE The right ventricle is normal size. The right ventricular systolic function is normal. ATRIA The left atrium size is normal. The right atrium size is normal. AORTIC VALVE The aortic valve is mildly thickened. The aortic valve is trileaflet. No aortic regurgitation is present. There is no aortic valvular stenosis. There is no aortic valvular vegetation. MITRAL VALVE Mitral annular calcification is mild. There is no evidence of mitral valve prolapse. There is no mitral valve stenosis. There is no mitral valve regurgitation noted. TRICUSPID VALVE The tricuspid valve is normal in structure. There is trace tricuspid regurgitation. Right ventricular systolic pressure is estimated at less than 30 mmHg. There is no pulmonary hypertension. There is no tricuspid valve prolapse or vegetation. There is no tricuspid valve stenosis. PULMONIC VALVE The pulmonary valve is normal in structure. There is no pulmonic valvular regurgitation. There is no pulmonic valvular stenosis. GREAT VESSELS The aortic root is normal in size. The IVC is normal in size and collapses >50% with inspiration. PERICARDIAL EFFUSION There is no pericardial effusion. There is no pleural effusion. <Conclusion> The left ventricle is normal size. Left ventricle systolic function is normal. The Ejection Fraction is 65-70%. The right ventricle is normal size. The right ventricular systolic function is normal. The left atrium size is normal. The right atrium size is normal. There is trace tricuspid regurgitation. Essentially normal M- mode, 2D and doppler echocardiogram.
--- NOTE | 2018-01-10 07:30 | CP.PCM.PN ---
Subjective - Date & Time of Evaluation Date of Evaluation: 01/10/18 Time of Evaluation: 07:30 - Subjective Subjective: PGY-[address] Barrera Patient was seen and examined at bedside in no acute distress. Patient reports feeling better, but complains of sinus congestion and pressure and headaches. She says she normally takes claritin when she has sinus complaints. No acute events over night. Patient denies chest pain, palpitations, cough, dyspnea, nausea, vomiting, abdominal pain, back pain, leg pain, diarrhea, dysuria, and constipation. Objective - Vital Signs/Intake and Output Vital Signs (last 24 hours): Temp Pulse Resp BP Pulse Ox 99.3 F 58 L 20 137/88 97 01/10/18 00:00 01/10/18 00:00 01/10/18 00:00 01/10/18 00:00 01/10/18 00:00 Intake and Output: 01/10/18 01/10/18 06:59 18:59 Intake Total 840 Balance 840 - Medications Medications: Current Medications Acetaminophen (Tylenol 325mg Tab) 650 mg PO Q6 PRN PRN Reason: Fever >100.4 F Last Admin: 01/09/18 22:37 Dose: 650 mg Heparin Sodium (Porcine) (Heparin) 5,000 units SC Q12 TEX Last Admin: 01/09/18 21:09 Dose: 5,000 units Ceftriaxone Sodium 1 gm/ (Sodium Chloride) 100 mls @ 100 mls/hr IVPB DAILY TEX; Protocol Last Admin: 01/09/18 09:58 Dose: 100 mls/hr - Labs Labs: 01/09/18 06:57 01/09/18 06:57 - Constitutional Appears: No Acute Distress - Head Exam Head Exam: ATRAUMATIC, NORMAL INSPECTION - Eye Exam Eye Exam: EOMI, Normal appearance - ENT Exam ENT Exam: Mucous Membranes Moist Additional comments: Sinus tenderdness with palpation bilaterallly (frontal and maxillary); no nasal erythema or discharge noted. No lymphadenoapthy palpated. - Neck Exam Neck Exam: absent: Lymphadenopathy - Respiratory Exam Respiratory Exam: Clear to Ausculation Bilateral, NORMAL BREATHING PATTERN. absent: Rales, Rhonchi, Wheezes, Respiratory Distress - Cardiovascular Exam Cardiovascular Exam: REGULAR RHYTHM, +S1, +S2 - GI/Abdominal Exam GI & Abdominal Exam: Soft, Normal Bowel Sounds. absent: Distended, Firm, Guarding, Tenderness - Extremities Exam Extremities Exam: Normal Inspection. absent: Pedal Edema, Tenderness - Back Exam Back Exam: NORMAL INSPECTION. absent: CVA tenderness (L), CVA tenderness (R) - Neurological Exam Neurological Exam: Alert, Awake, Oriented x3 - Psychiatric Exam Psychiatric exam: Normal Affect, Normal Mood - Skin Skin Exam: Dry, Intact, Normal Color, Warm Assessment and Plan - Assessment and Plan (Free Text) Plan: Pyelonephritis - Ceftriaxone 1 g daily - Toradol prn - Renal ultrasound is normal - Urine culture pending >>> shows E. Coli - Discharging on cipro Hypokalemia - Resolved Transaminitis - Hep panel negative - GGT elevated - Trending down - Abdominal ultrasound shows fatty infiltration vs. hepatic parenchymal disease - Will need outpatient gi workup Elevated alk phos - Hep panel negative - GGT elevated - Trending down Cardiomegaly on CXR - Cardiology consult. recs appreciated. Dr. Estrada - Echo: EF 65-70%; trace tricuspic regurg, otherwise normal echo IGT - Lifestyle and diet changes - May be a candidate for metformin for prevention given age and BMI - Needs to follow up as outpatient with PMD GI/DVT ppx - Heparin 5000 q 12 hrs - No GI indicated All management and orders per Dr. Barrera. Patient is stable for discharge to home per Dr. Barrera. Patient must continue t he following new medications: 1. Cipro 500mg PO [id number]- take 1 tablet twice a day for 5 days. 2. Norvasc 5mg PO Daily- take 1 tablet once a day 3. Loratadine 10mg PO daily- take 1 tablet once a day Patient may use over the counter nasal spray for nasal congestion. Patient must follow up with PMD, Dr Barrera, within one week of discharge. If symptoms worsen or reoccur, patient should return to the nearest hospital.
--- NOTE | 2018-01-10 07:48 | CP.PCM.PN ---
Subjective - Date & Time of Evaluation Date of Evaluation: 01/10/18 Time of Evaluation: 07:48 Objective - Vital Signs/Intake and Output Vital Signs (last 24 hours): Temp Pulse Resp BP Pulse Ox 99.3 F 58 L 20 137/88 97 01/10/18 00:00 01/10/18 00:00 01/10/18 00:00 01/10/18 00:00 01/10/18 00:00 Intake and Output: 01/10/18 01/10/18 06:59 18:59 Intake Total 840 Balance 840 - Medications Medications: Current Medications Acetaminophen (Tylenol 325mg Tab) 650 mg PO Q6 PRN PRN Reason: Fever >100.4 F Last Admin: 01/09/18 22:37 Dose: 650 mg Heparin Sodium (Porcine) (Heparin) 5,000 units SC Q12 TEX Last Admin: 01/09/18 21:09 Dose: 5,000 units Ceftriaxone Sodium 1 gm/ (Sodium Chloride) 100 mls @ 100 mls/hr IVPB DAILY TEX; Protocol Last Admin: 01/09/18 09:58 Dose: 100 mls/hr - Labs Labs: 01/09/18 06:57 01/09/18 06:57
[2018-01-10 17:00] VITALS: BP 127/83; PULSE 63; TEMP 98.3; O2SAT 97
== END 2018-01-10 17:26 | disposition home or self-care (01) | DRG 320 ==
LOC: C.ER 11:20 → C.9E 15:14 → C.3T 16:48 → OBSVTOIN 01-08 13:42
PROVIDERS: ADMIT Internal Medicine Pulmonary Disease; ATTEND Internal Medicine Pulmonary Disease
DX: N10 Acute pyelonephritis (principal); E87.6 Hypokalemia; I10 Essential (primary) hypertension; I51.7 Cardiomegaly; E66.9 Obesity, unspecified; Z68.32 Body mass index [BMI] 32.0-32.9, adult